=== PATIENT | female | born 1935 | race Two or more races ===

== ENCOUNTER 2021-11-28 13:19 | Emergency (ER) | payer MEDICARE, MEDICAID ==
[~2021-11-28] VITALS: Ht 139.7 cm; Wt 60.3 kg
[2021-11-28 14:20] VITALS: BP 151/51
[2021-11-28 14:23] LABS: Basophils # (auto) 0.1 10 ^3/uL (0-0.2); Basophils % (auto) 0.8 % (0.0-2.0); Eosinophils # (auto) 0.1 10 ^3/uL (0-0.8); Eosinophils % (auto) 1.4 % (0.0-7.0); Hematocrit 35.7 % (36.0-46.0); Hemoglobin 12.2 g/dL (12.2-16.2); Lymphocytes # (auto) 1.5 10 ^3/uL (0.4-5.4); Lymphocytes % (auto) 22.2 % (10.0-50.0); Mean Corpuscular Hemoglobin 31.5 pg (28.0-32.0); Mean Corpuscular Hgb Conc. 34.2 g/dL (32.0-36.0); Mean Corpuscular Volume 92.3 fL (80.0-100.0); Monocytes # (auto) 0.5 10 ^3/uL (0-1.3); Neutrophils # (auto) 4.7 10 ^3/uL (1.6-8.6); Neutrophils % (auto) 68.6 % (37.0-80.0); Red Blood Cells 3.87 10^6/uL (4.0-5.20); White Blood Cell 6.8 10^3/uL (4.4-10.8)
[2021-11-28 14:47] LABS: BUN/Creatinine Ratio 18.7; Magnesium 2.3 mg/dL (1.6-2.6); Potassium 4.2 mmol/L (3.5-5.1)
[2021-11-28] MEDS ORDERED: LOSA100T25 PO (16:21)
== END 2021-11-28 16:23 | disposition home or self-care (01) ==
LOC: ER 13:19
DX: I10 Essential (primary) hypertension (principal); E11.9 Type 2 diabetes mellitus without complications; E78.5 Hyperlipidemia, unspecified; Z76.0 Encounter for issue of repeat prescription; Z79.899 Other long term (current) drug therapy
CPT/HCPCS: 36415; 70450; 80048; 83735; 85025

== ENCOUNTER 2022-09-08 11:22 | Emergency (ER) | payer MEDICARE, MEDICAID ==
[~2022-09-08] VITALS: Ht 147.3 cm; Wt 58.6 kg
[~2022-09-08 11:22] MED LIST: LOSA100T25 PO
[2022-09-08] MEDS ORDERED: ACETAMINOPHEN 325 MG TAB PO ONE (13:00)
[2022-09-08] MEDS ORDERED: cloNIDine HCL 0.1 MG TAB PO ONE (14:30)
[2022-09-08 14:34] VITALS: BP 219/99
== END 2022-09-08 13:14 | disposition short-term general hospital (02) ==
LOC: ER 11:24
DX: S01.01XA Laceration without foreign body of scalp, initial encounter (principal); I10 Essential (primary) hypertension; E11.9 Type 2 diabetes mellitus without complications; E78.5 Hyperlipidemia, unspecified; Z90.49 Acquired absence of other specified parts of digestive tract; Z79.899 Other long term (current) drug therapy; W10.9XXA Fall (on) (from) unspecified stairs and steps, initial encounter; Y93.89 Activity, other specified; Y92.89 Other specified places as the place of occurrence of the external cause; Y99.8 Other external cause status
CPT/HCPCS: 12001; 70450; 82962

== ENCOUNTER 2024-11-13 11:18 | Emergency (ER) | payer MEDICARE, MEDICAID ==
[~2024-11-13] VITALS: Ht 152.4 cm; Wt 54.8 kg
[2024-11-13 12:15] VITALS: BP 178/100; PULSE 83; RESP 18; TEMP 98.3; O2SAT 96
[2024-11-13] MEDS: cefTRIAXone SOD 1,000 MG VL IM ONE (12:49)
--- NOTE | 2024-11-13 12:49 | ED.PDOC ---
Eye-HPI HPI Comments A 89 YEAR OLD FEMALE PRESENTS TO THE ED WITH COMPLAINT OF BILATERAL EAR PAIN AND HEADACHE. PATIENT STATES SHE HAS BEEN EXPERIENCING BILATERAL EAR PAIN OFF AND ON FOR THE PAST 1 MONTH. PATIENT REPORTS SHE WAS ALSO BEEN EXPERIENCING A HEADACHE DUE TO HER EAR PAIN. PATIENT DENIES VISION CHANGES, SLURRED SPEECH, ONE-SIDED WEAKNESS, FACIAL DROOP, FEVER, CHILLS, SHORTNESS OF BREATH, CHEST PAIN, ABDOMINAL PAIN, NAUSEA, VOMITING, OR OTHER COMPLAINTS. NO OTHER SYMPTOMS OR MODIFYING FACTORS AT THIS TIME. PATIENT IS ALERT, ORIENTED X 4, AND HAS STEADY GAIT. Chief Complaint: Earache Time Seen by MD: 11:54 Reviewed Notes: Nurses Notes, Medications, Allergies Allergies: Coded Allergies: NO KNOWN ALLERGIES (Unverified , 11/28/21) Home Meds Active Scripts Jfwbcmff-Vecmqwled-Dx (Otic) (Cortisporin Otic Susp) [address], 4 DROP EACH EAR TID, #10 ML Prov:CHANDLER KILLIAN 11/13/24 Methylprednisolone (Medrol Dosepak) 4 Mg Claudy, 4 MG PO UD, #21 TAB UAD Prov:CHANDLER KILLIAN 11/13/24 Amoxicillin & Pot Clavulanate (AUGMENTIN TABLET) 875 Mg Tb, 875 MG PO BID, #20 TAB Prov:CHANDLER KILLIAN 11/13/24 Losartan Potassium & Hydrochlo (Hyzaar) 1 Tab Tab, 1 TAB PO DAILY, #30 TAB 5 Refills Prov:CHANDLER KILLIAN 11/28/21 Information Source: Patient Mode of Arrival: Ambulatory Timing: Weeks Duration: Since onset Prehospital treatment: None Quality: Pain, Red Lids: Normal Conjunctiva: Normal Cornea: Normal Pupils: Normal EOM: Normal Fundus: Normal Slit lamp exam: Normal Anterior chamber: Normal Mouth: Normal ENT Ear Exam: Normal, Red, Bulging, Normal Nose: Normal Sinuses: Normal Oropharynx: Normal Onset: Spontaneous Throat Exposed to: None History of: None Last Tetanus: Unknown Modifying factors: Nothing Associated signs and symptoms: Ear Pain Past Medical History PAST MEDICAL HISTORY: Arthritis, DM, High Lipids, HTN Surgical History: Cholecystectomy, DICTIONARY EDITOR History: Denies all DICTIONARY EDITOR Hx Family History Family History: Reviewed,noncontributory to illness Social History Smoker: Non-Smoker Alcohol: Denies ETOH Use Drugs: Denies Drug Use Lives In: Home Constitutional: denies: chills, diaphoresis, fatigue, fever, malaise, sweats, weakness, others EENTM: reports: ear pain, ear ringing; denies: blurred vision, double vision, ear bleeding, ear discharge, ear drainage, eye pain, eye redness, hearing loss, mouth pain, mouth swelling, nasal discharge, nose bleeding, nose congestion, nose pain, photophobia, tearing, throat pain, throat swelling, voice changes, others Respiratory: denies: cough, hemoptysis, orthopnea, SOB at rest, shortness of breath, SOB with excertion, stridor, wheezing, others Cardiovascular: denies: chest pain, dizzy spells, diaphoresis, Dyspnea on exertion, edema, irregular heart beat, left arm pain, lightheadedness, palpitations, PND, syncope, others Gastrointestinal: denies: abdomen distended, abdominal pain, blood streaked bowels, constipated, diarrhea, dysphagia, difficulty swallowing, hematemesis, melena, nausea, poor appetite, poor fluid intake, rectal bleeding, rectal pain, vomiting, others Genitourinary: denies: abnormal vagina bleeding, burning, dyspareunia, dysuria, flank pain, frequency, hematuria, incontinence, pain, , vagina discharge, urgency, others Neurological: reports: headache; denies: dizziness, fainting, left sided numbne ss, left sided weakness, numbness, paresthesia, pre-existing deficit, right sided numbness, right sided weakness, seizure, speech problems, tingling, tremors, weakness, others Musculoskeletal: denies: back pain, gout, joint pain, joint swelling, muscle pain, muscle stiffness, neck pain, others Integumetry: denies: bruises, change in color, change in hair/nails, dryness, laceration, lesions, lumps, rash, wounds, others Allergic/Immunocompromised: denies: Difficulty Healing, Frequent Infections, Hives, Itching, others Hematologic/Lymphatic: denies: anemia, blood clots, easy bleeding, easy bruising, swollen glands, others Endocrine: denies: excessive hunger, excessive sweating, excessive thirst, excessive urination, flushing, intolerance to cold, intolerance to heat, unexplained weight gain, unexplained weight loss, others Psychiatric: denies: anxiety, bipolar disorder, depression, hopeless, panic disorder, schizophrenia, sleepless, suicidal, others All Other Systems: Reviewed and Negative Physical Exam General Appearance: No Apparent Distress, Normal HEENT: PERRL/EOMI, Pharynx Normal, TM Abnormal (L) (ERYTHEMA AND DULL WITH EFFUSION OF LEFT TM AND EAR CANAL. ), TM Abnormal (R) (ERYTHEMA AND DULL WITH EFFUSION OF RIGHT TM AND EAR CANAL. ) Neck: Full Range of Motion, Non-Tender, Normal, Normal Inspection Respiratory: Chest Non-Tender, Lungs Clear, No Accessory Muscle Use, No Respiratory Distress, Normal Breath Sounds Cardiovascular: No Edema, No JVD, No Murmur, No Gallop, Normal Peripheral Pulse s, Regular Rate/Rhythm Breast Exam: Deferred Gastrointestinal: No Organomegaly, Non Tender, No Pulsatile Mass, Normal Bowel Sounds, Soft Genitalia: Deferred Pelvic: Deferred Rectal: Deferred Extremities: No calf tenderness, Normal capillary refill, Normal inspection, Normal range of motion, Non-tender, No pedal edema Musculoskeletal : Apperance: Normal Neurologic: Alert, school photographs detailer II-XII nml as Tested, No Motor Deficits, Normal Affect, Normal Mood, No Sensory Deficits Cerebellar Function: Normal Reflexes: Normal Skin: Dry, Normal Color, Warm Peripheral Pulses: 2+ carotid (R), 2+ carotid (L) Lymphatic: No Adenopathy Was a procedure done? Was a procedure done?: No EENT DIFF Eye: N/A Ear: Cerumen Impaction, Otitis Externa, Otitis Media, Pharyngitis, Sinusitis Nose: N/A Mouth: N/A Sore Throat: N/A X-Ray, Labs, Meds, VS Vital Signs Date Time Temp Pulse Resp B/P (MAP) Pulse Ox O2 Delivery O2 Flow Rate FiO2 11/13/24 12:15 98.3 83 18 178/100 (126) 96 98.3 11/13/24 12:15 83 18 96 Room Air 11/13/24 11:24 98.3 83 18 178/100 (126) 96 98.3 139/76 (97) Current Medications Medications (Trade) Dose Ordered Sig/Armani Route Start Time Stop Time Status Last Admin Ceftriaxone Sodium (Rocephin) 1,000 mg ONCE ONCE IM 11/13/24 12:45 11/13/24 12:46 DC 11/13/24 12:49 Acetaminophen (Tylenol Tablet Or Capsule) 1,000 mg ONCE ONCE PO 11/13/24 13:00 11/13/24 13:01 DC 11/13/24 12:53 CT HEAD WITHOUT CONTRAST Indication: EARS PAIN TO HEAD EXAM DATE: 11/13/2024 12:47 PM COMPARISON: CT HEAD WITHOUT CONTRAST on DOS: 09/08/22, HEAD WITHOUT CONTRAST on DOS: 11/28/21 TECHNIQUE: CT of the head without intravenous contrast. RADIATION DOSE: CTDIvol: 51.61 mGy, DLP: 810.86 mGy*cm FINDINGS: There is no intracranial hemorrhage. There is no extra-axial fluid, mass, mass effect or midline shift. The ventricles are midline and normal in size. Basilar cisterns are patent. There are moderate periventricular and subcortical white matter chronic microvascular ischemic changes. Mild global cerebral volume loss Large bilateral mastoid effusions. Bilateral middle ear effusions.. Imaged portion of the orbits are unremarkable. IMPRESSION: 1. No intracranial hemorrhage or mass effect. 2. Moderate chronic microvascular ischemic changes 3. Large bilateral mastoid effusions 4. Bilateral middle ear effusions. ATED BY: STEWART ARMSTRONG MD DICTATED DATE/TIME: 11/13/241315 SIGNED BY: STEWART ARMSTRONG MD SIGNED DATE/TIME: 11/13/241315 CC: X-Ray, Labs, Meds, VS Comment EXTERNAL MEDICAL RECORDS REVIEWED: [NONE] INDEPENDENT HISTORIANS: [NONE] SOCIAL DETERMINANTS OF HEALTH: [NONE] LABS ORDERED: NONE REVIEWED AND INTERPRETED RESULTS: NONE IMAGING ORDERED: CT BRAIN TREATMENTS ORDERED: TYLENOL 1 G P[address]O., ROCEPHIN 1G IM PROCEDURES PERFORMED: NONE CRITICAL CARE TIME: NONE I HAVE DISCUSSED THE PATIENT WITH THE ATTENDING PHYSICIAN DR. HERNANDEZ AND HE AGREES WITH THE PATIENT'S PLAN OF CARE AND DISPOSITION. BASED ON HISTORY OF PRESENT ILLNESS, AND PHYSICAL EXAM, PATIENT WILL BE DISCHARGED HOME. DISCUSSED PLAN FOR DISCHARGE HOME WITH RX [AUGMENTIN AND MEDROL DOSEPAK]. MEDICATION WARNINGS GIVEN. SHARED DECISION MAKING: PATIENT INSTRUCTED TO FOLLOW UP WITH PRIMARY CARE PROVIDER IN 1-2 DAYS FOR RE-EVALUATION OF SYMPTOMS. PATIENT VERBALIZES UNDERSTANDING TO RETURN TO ED FOR NEW OR WORSENING SYMPTOMS OR IF FOLLOW UP WITH PCP CANNOT BE OBTAINED. PATIENT FEELS COMFORTABLE GOING HOME AT THIS TIME. ALL QUESTIONS ADDRESSED AT TIME OF DISCHARGE. Images Reviewed?: Images reviewed and evaluated by me Time of 1ST Reevaluation: 14:00 Reevaluation 1ST: Improved Patient Education/Counseling: Diagnosis, Treatment, Need For Follow Up Family Education/Counseling: Diagnosis, Treatment, Need For Follow Up Medical Screening: No EMC Exist At This Time Departure 1 Departure Time of Disposition: 14:00 Impression: Primary Impression: Acute serous otitis media Qualified Codes: H65.03 - Acute serous otitis media, bilateral Additional Impression: Otitis media of both ears Qualified Codes: H65.03 - Acute serous otitis media, bilateral Disposition: 01 HOME / SELF CARE / HOMELESS Condition: Stable Additional Instructions: FOLLOW-UP WITH PCP IN 1 TO 2 DAYS. TAKE MEDICATIONS PRESCRIBED. RETURN TO ED FOR ANY NEW OR WORSENING SYMPTOMS. e-Prescriptions Rfkmpavz-Mgbgnswlg-Uk (Otic) (Cortisporin Otic Susp) [address] 4 DROP EACH EAR TID, #10 ML Prov: CHANDLER KILLIAN 11/13/24 Methylprednisolone (Medrol Dosepak) 4 Mg Claudy 4 MG PO UD, #21 TAB UAD Prov: CHANDLER KILLIAN 11/13/24 Amoxicillin & Pot Clavulanate (AUGMENTIN TABLET) 875 Mg Tb 875 MG PO BID, #20 TAB Prov: CHANDLER KILLIAN 11/13/24 Discharged With: Self Critical Care Note Critical Care Time?: No Stability Stability form required: No I personally scribed for CHANDLER KILLIAN ([email or web address]) on 11/13/24 at 12:49. Electronically submitted by Shamar Oreilly ([employer]). I personally scribed for CHANDLER KILLIAN ([email or web address]) on 11/13/24 at 12:52. Electronically submitted by Shamar Oreilly ([employer]). I personally scribed for CHANDLER KILLIAN ([email or web address]) on 11/13/24 at 13:25. Electronically submitted by Shamar Oreilly ([employer]). CHANDLER KILLIAN November 13, 2024 12:49
[2024-11-13] MEDS: ACETAMINOPHEN 325 MG TAB PO ONE (12:50)
[2024-11-13] MEDS: ACETAMINOPHEN 500 MG TAB or CAP PO ONE ×2 (12:53)
--- NOTE | 2024-11-13 13:19 | DVH ---
CT HEAD WITHOUT CONTRAST Indication: EARS PAIN TO HEAD EXAM DATE: 11/13/2024 12:47 PM COMPARISON: CT HEAD WITHOUT CONTRAST on DOS: 09/08/22, HEAD WITHOUT CONTRAST on DOS: 11/28/21 TECHNIQUE: CT of the head without intravenous contrast. RADIATION DOSE: CTDIvol: 51.61 mGy, DLP: 810.86 mGy*cm FINDINGS: There is no intracranial hemorrhage. There is no extra-axial fluid, mass, mass effect or midline shif t. The ventricles are midline and normal in size. Basilar cisterns are patent. There are moderate per iventricular and subcortical white matter chronic microvascular ischemic changes. Mild global cerebr al volume loss Large bilateral mastoid effusions. Bilateral middle ear effusions.. Imaged portion of the orbits are unremarkable. IMPRESSION: 1. No intracranial hemorrhage or mass effect. 2. Moderate chronic microvascular ischemic changes 3. Large bilateral mastoid effusions 4. Bilateral middle ear effusions.
[2024-11-13] MEDS: LIDOCAINE 1% HCL (LOCAL ANESTH.) INJ 20ML MDV ONE ×2 (13:33)
[2024-11-13] MEDS ORDERED: AUG875T PO (13:53)
[2024-11-13] MEDS ORDERED: COROSUS EACH EAR (13:53)
[2024-11-13] MEDS ORDERED: METH4PAK PO (13:53)
== END 2024-11-13 13:43 | disposition home or self-care (01) ==
LOC: ER 11:21
DX: H65.03 Acute serous otitis media, bilateral (principal); I10 Essential (primary) hypertension; E11.9 Type 2 diabetes mellitus without complications; M19.90 Unspecified osteoarthritis, unspecified site; Z79.899 Other long term (current) drug therapy; Z90.49 Acquired absence of other specified parts of digestive tract
CPT/HCPCS: 70450; 96372; 99285; J0696; J2003